=== PATIENT | male | born 1965 | race Caucasian/White ===

== ENCOUNTER 2020-03-28 11:29 | Day surgery (SDC) | payer OTHER ==
[~2020-03-28] VITALS: Ht 177.8 cm; Wt 103.5 kg
[~2020-03-28 11:29] MED LIST: ASPI81TA45 PO; IBUP-1223 PO; ROPIvacaine/PF 0.5%, 30 ML ONE
[2020-03-28] MEDS ORDERED: CHLORHEXIDINE 15 ML UDC MM ONE (12:30)
[2020-03-28] MEDS ORDERED: LACTATED RINGERS 1,000 ML IV SCH (12:30)
[2020-03-28] MEDS ORDERED: FENTANYL PF 250 MCG/5ML ONE (12:35)
[2020-03-28] MEDS ORDERED: MIDAZOLAM 1 MG/ML, 2ML ONE (12:35)
[2020-03-28 12:44] VITALS: BP 142/92
[2020-03-28] MEDS ORDERED: HYDROmorphone 1 MG/ML, 1ML INJ IVPush PRN (13:30)
[2020-03-28] MEDS ORDERED: EPHEDRINE 50 MG/ML, 1ML IVPush PRN (13:30)
[2020-03-28] MEDS ORDERED: hydrALAzine 20 MG/ML, 1ML IV PRN (13:30)
[2020-03-28] MEDS ORDERED: ONDANSETRON 2MG/ML, 2ML IVPush PRN (13:30)
[2020-03-28] MEDS ORDERED: DIAZEPAM 5 MG/ML, 2ML IVPush PRN (13:30)
[2020-03-28] MEDS ORDERED: HALOPERIDOL 5 MG/ML IV PRN (13:30)
[2020-03-28] MEDS ORDERED: ACETAMINOPHEN 325 MG TABLET PO PRN (13:30)
[2020-03-28] MEDS ORDERED: LABETALOL 5MG/ML, 20ML IV PRN (13:30)
[2020-03-28] MEDS ORDERED: PROMETHAZINE 25 MG/ML, 1ML IVPush PRN (13:30)
[2020-03-28] MEDS ORDERED: KETOROLAC 30 MG/1 ML IVPush PRN (13:30)
[2020-03-28] MEDS ORDERED: FENTANYL PF 100 MCG/2ML IV PRN (13:30)
[2020-03-28] MEDS ORDERED: OXYcodone 5 MG/5 ML ORAL.SOL UDC PO PRN (13:30)
[2020-03-28] MEDS ORDERED: METOPROLOL 1 MG/ML, 5ML IV PRN (13:30)
[2020-03-28] MEDS ORDERED: METOCLOPRAMIDE 5 MG/ML, 2ML IVPush PRN (13:30)
[2020-03-28] MEDS ORDERED: DIPHENHYDRAMINE 50 MG/ML, 1ML IVPush PRN (13:30)
[2020-03-28] MEDS ORDERED: HYDROcodone/APAP 5/325 TABLET PO PRN (14:00)
[2020-03-28] MEDS ORDERED: ACETAMINOPHEN 650 MG/20.3 ML UDC ONE (14:08)
[2020-03-28] MEDS ORDERED: DEXAMETHASONE 4 MG/ML, 1ML ONE (15:52)
[2020-03-28] MEDS ORDERED: KETOROLAC 30 MG/1 ML ONE (15:52)
[2020-03-28] MEDS ORDERED: ONDANSETRON 2MG/ML, 2ML ONE (15:52)
[2020-03-28] MEDS ORDERED: CEFAZOLIN 1,000 MG ONE (15:52)
[2020-03-28] MEDS ORDERED: PROPOFOL 10 MG/ML, 20ML ONE (15:52)
== END 2020-03-28 15:45 | disposition home or self-care (01) ==
LOC: OUT 11:29
PROVIDERS: ATTEND Orthopaedic Surgery
DX: S83.272A Complex tear of lateral meniscus, current injury, left knee, initial encounter (principal); S83.232A Complex tear of medial meniscus, current injury, left knee, initial encounter; M65.862 Other synovitis and tenosynovitis, left lower leg; M17.12 Unilateral primary osteoarthritis, left knee; Z20.822 Contact with and (suspected) exposure to COVID-19; Z79.1 Long term (current) use of non-steroidal anti-inflammatories (NSAID); X58.XXXA Exposure to other specified factors, initial encounter; Y93.89 Activity, other specified; Y92.89 Other specified places as the place of occurrence of the external cause; Y99.8 Other external cause status
CPT/HCPCS: 29880; J0690; J1100; J1885; J2250; J2405; J2704; J2795; J3010; J7120; U0003